=== PATIENT | female | born 1945 | race Caucasian/White ===

== ENCOUNTER 2016-10-02 07:31 | Emergency (ER) | payer OTHER, MEDICAID ==
[2016-10-02 08:10] LABS: AUTOMATED BASOPHIL 0.2 % (0-2); AUTOMATED EOSINOPHIL 2.9 % (0-5); AUTOMATED LYMPH 18.9 % (17-44); AUTOMATED MONOCYTE 7.6 % (3-10); AUTOMATED NEUTROPHIL 70.4 % (45-76); MPV 7.4 fL (7.4-10.4)
[2016-10-02 08:20] LABS: PARTIAL THROMB. TIME 24.8 SEC (22-35); PT-INR 1.1
[2016-10-02 08:22] VITALS: TEMP 98.5; BMI 25.8
--- NOTE | 2016-10-02 08:22 | DIRPT ---
CLINICAL DATA: Weakness EXAM: CHEST 2 VIEW COMPARISON: 09/19/2016 FINDINGS: Normal heart size and pulmonary vascularity. Atherosclerotic calcification and tortuosity of thoracic aorta. Lungs clear. No pleural effusion or pneumothorax. Prior cervicothoracic fusion. IMPRESSION: No acute abnormalities. Electronically Signed By: Rahat Do M.D. On: 10/02/2016 08:19
[2016-10-02 08:23] LABS: BLOOD UREA NITROGEN 18 MG/DL (7-17); CALCIUM 9.6 MG/DL (8.4-10.2); CALCULATED OSMOLALITY 293 MOs/Kg (270-290); CHLORIDE 113 mEq/L (98-107); CPK TOTAL WITH POSSIBLE MB 56 IU/L (30-134); GLUCOSE 112 MG/DL (70-99); SODIUM LEVEL 151 mEq/L (137-146); TOTAL PROTEIN 7.2 G/DL (6.3-8.2)
[2016-10-02 08:29] LABS: LEUKOCYTES/URINE 2+ (NEGATIVE); NITRITE/URINE NEG (NEGATIVE); RBC/URINE 0-2 (0-5); URINE OCCULT BLOOD NEG (NEG/TRACE); WBC/URINE 20-30 (0-5)
--- NOTE | 2016-10-02 08:32 | DIRPT ---
CLINICAL DATA: Altered mental status with progressive confusion over past 24 hours EXAM: CT HEAD WITHOUT CONTRAST TECHNIQUE: Contiguous axial images were obtained from the base of the skull through the vertex without intravenous contrast. COMPARISON: October 27, 2015 FINDINGS: Mild diffuse atrophy is stable. There is no intracranial mass hemorrhage, extra-axial fluid collection, or midline shift. Patchy small vessel disease in the centra semiovale bilaterally is stable. Elsewhere donahue-white compartments appear normal. No acute infarct evident. Bony calvarium appears intact. The mastoid air cells are clear. No intraorbital lesions are identified in visualized intraorbital regions. IMPRESSION: Stable atrophy with patchy periventricular small vessel disease. No intracranial mass, hemorrhage, or acute appearing infarct. Electronically Signed By: Acosta Hampton III, M.D. On: 10/02/2016 08:29
--- NOTE | 2016-10-02 09:12 | EDPRACDOC ---
- General Information Chief Complaint: Altered Mental Status Stated Complaint: ABDOMINAL PAIN Time Seen by Provider: 10/02/16 07:45 Information Source: Patient Home Medications: Home Medications Atorvastatin Calcium [Lipitor] 40 mg PO QHS 02/11/16 Carvedilol [Coreg] 3.125 mg PO BID 02/11/16 Pregabalin [Lyrica] 100 mg PO TID 02/11/16 Polyethylene Glycol 3350 [Miralax] 17 gm PO DAILY PRN 04/08/16 Lorazepam [Ativan] 1 mg PO Q6H PRN #120 tablet 04/12/16 Acetaminophen [Mapap] 650 mg PO Q6H PRN 09/19/16 Amlodipine [Norvasc] 5 mg PO DAILY 09/19/16 Aspirin (Enteric Coated) [Ecotrin] 81 mg PO DAILY 09/19/16 Cetirizine HCl [Zyrtec] 10 mg PO DAILY 09/19/16 Cholecalciferol (Vitamin D3) [Vitamin D3] 2,000 unit PO DAILY 09/19/16 Insulin Glargine,Hum.rec.anlog [Lantus] 28 units SQ 0800 09/19/16 Lorazepam [Ativan] 1 mg PO BID 09/19/16 Oxybutynin Chloride [Oxybutynin Chloride ER] 10 mg PO DAILY 09/19/16 Polyvinyl Alcohol [Artificial Tears] 1 drop OU Q4H PRN 09/19/16 Ciprofloxacin HCl [Cipro] 500 mg PO BID #14 tab 10/02/16 Hydrocodone Bit/Acetaminophen [[place] 5-325 Tablet] 1 each PO Q4H PRN 10/02/16 Wyatt [Eskalith, Lithonate] 300 mg PO DAILY 10/02/16 Methyl Salicylate/Menthol [Icy Hot Cream] 35.4 gm TOP Q6H PRN 10/02/16 Mineral Oil/Petrolatum,White [Minerin Creme] 454 gm TOP .EVERY SHIFT PRN Olanzapine [Olanzapine ODT] 5 mg PO DAILY 10/02/16 Olanzapine [Olanzapine ODT] 20 mg PO HS 10/02/16 Povidone-Iodine [Betadine] 15 ml TOP DAILY PRN 10/02/16 Sodium Chloride [Deep Sea] 1 spray LUZ TID PRN 10/02/16 Tramadol HCl 50 mg PO Q4 PRN 10/02/16 Allergies/Adverse Reactions: Allergies Allergy/AdvReac Type Severity Reaction Status Date / Time aripiprazole Allergy Unknown Verified 10/02/16 08:18 aspirin Allergy Unknown Verified 10/02/16 08:18 celecoxib Allergy Unknown Verified 10/02/16 08:18 codeine Allergy Unknown Verified 10/02/16 08:18 crab Allergy Unknown Verified 10/02/16 08:22 furosemide [From Lasix] Allergy Unknown Verified 10/02/16 08:22 gabapentin [From Neurontin] Allergy Unknown Verified 10/02/16 08:22 hydrocodone Allergy Unknown Verified 10/02/16 08:22 hydrocortisone Allergy Unknown Verified 10/02/16 08:22 metaxalone Allergy Unknown Verified 10/02/16 08:22 morphine Allergy Unknown Verified 10/02/16 08:22 oxybutynin Allergy Unknown Verified 10/02/16 08:22 oxycodone Allergy Unknown Verified 10/02/16 08:22 Penicillins Allergy Unknown Verified 10/02/16 08:22 Sulfa (Sulfonamide Allergy Unknown Verified 10/02/16 08:18 Antibiotics) BETA-LACTAM ANTIMICROBIALS Allergy Unknown Uncoded 10/02/16 08:18 - History of Present Illness Onset: yesterday HPI: PT PRESENTS WITH WORSENING CONFUSION AND REPORT OF STRONG SMELLING URINE. PT HAS BASELINE POOR COGNITION. 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 Denies: Substance Use Disorder Systemic History: Reports: Diabetes Surgical History: Reports: Other (Orthopedic procedure) - Social Medical History Smoking Status: Former smoker Social History: Denies: Substance Use Disorder EDM Review of Systems - Review of Systems ROS Unobtainable: Yes Hx Limited due to age/level of understanding of patient Cardiovascular: negative: Chest Pain Gastrointestinal: negative: Pain - Physical Exam Constitutional: Alert, Confused Oriented to: Person, Place Last recorded Vital Signs: Last Vital Signs Temp 98.5 F 10/02/16 08:17 Pulse 90 10/02/16 08:40 Resp 20 10/02/16 08:40 BP 193/86 H 10/02/16 08:40 Pulse Ox 96 10/02/16 08:40 Oxygen Pulse Oxygen Saturation 96 O2 Device Room Air Oxygen Flow Rate Fraction of Inspired Oxygen ( FIO2) - HEENT Head: negative: Deformity, Laceration Eye Exam: negative: Conjunctival Injection, Pale Conjunctiva Oropharynx: negative: Membranes Dry Nose: negative: Congestion, Discharge Neck: negative: Limited ROM - Respiratory/Cardiovascular Respiratory: Normal - CTA. negative: Accessory Muscle Use, Diminished, Tachypnea Cardiovascular: negative: Bradycardia, Tachycardia, Irregular - GI Auscultation: Normal Palpation: Normal Tenderness: Non tender - Integumentary Skin: Warm, Dry. negative: Rash - Neurologic Memory Impaired: Short-term, Long-term Motor Function: Normal Mood Description: Anxious Thought: Flight of Ideas, Rambling Conversation - Results 10/02/16 07:51 10/02/16 07:51 WBC 7.0 xk/uL (3.8-10.8) 10/02/16 07:51 RBC 4.09 xM/uL (4.20-5.40) L 10/02/16 07:51 Hgb 11.9 g/dL (12.0-16.0) L 10/02/16 07:51 Hct 35.6 % (36-47) L 10/02/16 07:51 MCV 87 fL (81-99) 10/02/16 07:51 MCH 29.1 pg (27-32) 10/02/16 07:51 MCHC 33.5 g/dl (33-36) 10/02/16 07:51 RDW 14.4 % (11.5-14.5) 10/02/16 07:51 Plt Count 265 xk/uL (130-400) 10/02/16 07:51 MPV 7.4 fL (7.4-10.4) 10/02/16 07:51 Neut % (Auto) 70.4 % (45-76) 10/02/16 07:51 Lymph % (Auto) 18.9 % (17-44) 10/02/16 07:51 Crook % (Auto) 7.6 % (3-10) 10/02/16 07:51 Eos % (Auto) 2.9 % (0-5) 10/02/16 07:51 Baso % (Auto) 0.2 % (0-2) 10/02/16 07:51 Absolute Neuts (auto) 4.90 xk/uL (1.7-8.2) 10/02/16 07:51 Absolute Lymphs (auto) 1.26 xk/uL (0.65-4.75) 10/02/16 07:51 PT 11.2 SEC (9.2-11.2) 10/02/16 07:51 INR 1.1 10/02/16 07:51 APTT 24.8 SEC (22-35) 10/02/16 07:51 Sodium 151 mEq/L (137-146) H 10/02/16 07:51 Potassium 4.0 mEq/L (3.5-5.1) 10/02/16 07:51 Chloride 113 mEq/L (98-107) H 10/02/16 07:51 Carbon Dioxide 27 mMOL/L (22-33) 10/02/16 07:51 Anion Gap 15 mEq/L (8-16) 10/02/16 07:51 BUN 18 MG/DL (7-17) H 10/02/16 07:51 Creatinine 0.90 MG/DL (0.52-1.04) 10/02/16 07:51 Estimated GFR (MDRD) > 60 mL/min (>=60) 10/02/16 07:51 Glucose 112 MG/DL (70-99) H 10/02/16 07:51 Calculated Osmolality 293 MOs/Kg (270-290) H 10/02/16 07:51 Lactic Acid 0.8 mEq/L (0.7-2.1) 10/02/16 08:05 Calcium 9.6 MG/DL (8.4-10.2) 10/02/16 07:51 Total Bilirubin 0.6 MG/DL (0.2-1.3) 10/02/16 07:51 AST 20 IU/L (14-36) 10/02/16 07:51 ALT 22 IU/L (9-52) 10/02/16 07:51 Alkaline Phosphatase 115 IU/L (55-165) 10/02/16 07:51 Creatine Kinase 56 IU/L (30-134) 10/02/16 07:51 Troponin I < 0.01 ng/mL (<.04) 10/02/16 07:51 Total Protein 7.2 G/DL (6.3-8.2) 10/02/16 07:51 Albumin 4.0 G/DL (3.5-5.0) 10/02/16 07:51 Urine Color Pale yellow 10/02/16 07:51 Urine Clarity Clear 10/02/16 07:51 Urine pH 7.0 (5.0-8.0) 10/02/16 07:51 Ur Specific [place] 1.005 (1.003-1.035) 10/02/16 07:51 Urine Protein Neg (NEG/TRACE) 10/02/16 07:51 Urine Glucose (UA) Neg (NEGATIVE) 10/02/16 07:51 Urine Ketones Neg (NEGATIVE) 10/02/16 07:51 Urine Occult Blood Neg (NEG/TRACE) 10/02/16 07:51 Urine Nitrite Neg (NEGATIVE) 10/02/16 07:51 Urine Bilirubin Neg (NEGATIVE) 10/02/16 07:51 Urine Urobilinogen <2.0 MG/DL (0-1) 10/02/16 07:51 Ur Leukocyte Esterase 2+ (NEGATIVE) H 10/02/16 07:51 Urine RBC 0-2 (0-5) 10/02/16 07:51 Urine WBC 20-30 (0-5) H 10/02/16 07:51 Urine Bacteria Few (NEG/FEW) 10/02/16 07:51 Lab Results 10/02/16 10/02/16 10/02/16 08:05 07:51 07:51 WBC RBC Hgb Hct MCV MCH MCHC RDW Plt Count MPV Neut % (Auto) Lymph % (Auto) [place] % (Auto) Eos % (Auto) Baso % (Auto) Absolute Neuts (auto) Absolute Lymphs (auto) PT 11.2 INR 1.1 APTT 24.8 Sodium Potassium Chloride Carbon Dioxide Anion Gap BUN Creatinine Estimated GFR (MDRD) Glucose Calculated Osmolality Lactic Acid 0.8 Calcium Total Bilirubin AST ALT Alkaline Phosphatase Creatine Kinase Troponin I Total Protein Albumin Urine Color Pale yellow Urine Clarity Clear Urine pH 7.0 Ur Specific [place] 1.005 Urine Protein Neg Urine Glucose (UA) Neg Urine Ketones Neg Urine Occult Blood Neg Urine Nitrite Neg Urine Bilirubin Neg Urine Urobilinogen <2.0 Ur Leukocyte Esterase 2+ H Urine RBC 0-2 Urine WBC 20-30 H Urine Bacteria Few 10/02/16 10/02/16 07:51 07:51 WBC 7.0 RBC 4.09 L Hgb 11.9 L Hct 35.6 L MCV 87 MCH 29.1 MCHC 33.5 RDW 14.4 Plt Count 265 MPV 7.4 Neut % (Auto) 70.4 Lymph % (Auto) 18.9 [place] % (Auto) 7.6 Eos % (Auto) 2.9 Baso % (Auto) 0.2 Absolute Neuts (auto) 4.90 Absolute Lymphs (auto) 1.26 PT INR APTT Sodium 151 H Potassium 4.0 Chloride 113 H Carbon Dioxide 27 Anion Gap 15 BUN 18 H Creatinine 0.90 Estimated GFR (MDRD) > 60 Glucose 112 H Calculated Osmolality 293 H Lactic Acid Calcium 9.6 Total Bilirubin 0.6 AST 20 ALT 22 Alkaline Phosphatase 115 Creatine Kinase 56 Troponin I < 0.01 Total Protein 7.2 Albumin 4.0 Urine Color Urine Clarity Urine pH Ur Specific [place] Urine Protein Urine Glucose (UA) Urine Ketones Urine Occult Blood Urine Nitrite Urine Bilirubin Urine Urobilinogen Ur Leukocyte Esterase Urine RBC Urine WBC Urine Bacteria - EKG EKG #1 EKG Time: 08:28 -: Yes EKG interpreted by me Rate: bpm: 91 [place]: Normal Rhythm: NSR Block: None Hypertrophy: None ST: Normal Decision Time to Discharge: 09:20 - Departure Yes I personally saw and evaluated the patient. Disposition: Home Condition: Stable Final Diagnosis: Altered mental status UTI (urinary tract infection) Qualifiers: Urinary tract infection type: site unspecified Hematuria presence: without hematuria Qualified Code(s): N39.0 - Urinary tract infection, site not specified Instructions: Urinary Tract Infection in Women (ED), Dysuria Prescriptions: Ciprofloxacin HCl [Cipro] 500 mg PO BID #14 tab
[2016-10-02] MEDS ORDERED: CIPROFLOXACIN HCL 500 MG TAB PO STA (09:19)
[2016-10-02 11:46] VITALS: BP 168/72; PULSE 94
== END 2016-10-02 11:42 | disposition home or self-care (01) ==
LOC: ED 07:31
DX: N39.0 Urinary tract infection, site not specified (principal); R41.82 Altered mental status, unspecified
CPT/HCPCS: 36415; 70450; 71020; 80053; 81001; 82550; 83605; 84484; 85025; 85610; 85730; 87040; 87077; 87086; 87186; 93005; 99283; J3490